=== PATIENT | female | born 1995 | race Two or more races ===

== ENCOUNTER 2020-07-12 04:31 | Emergency (ER) | payer OTHER, SELFPAY ==
[2020-07-12 05:03] LABS: BASO # 0.1 10^3/uL (0.0-0.2); BASO % 0.5 % (0.0-1.0); EOS # 0.2 10^3/uL (0.0-0.5); EOS % 1.4 % (0.0-3.0); HEMATOCRIT 28.6 % (36.0-47.0); HEMOGLOBIN 7.9 g/dl (12.0-15.5); LYMPH # 3.8 10^3/uL (1.5-5.0); LYMPH % 36.3 % (24.0-44.0); MEAN CORPUSCULAR HEMOGLOBIN 19.9 pg (27.0-33.0); MEAN CORPUSCULAR HGB CONC 27.6 g/dl (32.0-36.5); MONO # 0.7 10^3/uL (0.0-0.8); NEUTROPHILS # 5.7 10^3/uL (1.5-8.5); NEUTROPHILS % 54.5 % (36.0-66.0); PLATELET COUNT, AUTOMATED 338 10^3/uL (150-450); RED BLOOD COUNT 3.97 10^6/uL (4.00-5.40); WHITE BLOOD COUNT 10.5 10^3/uL (4.0-10.0)
[2020-07-12 05:21] LABS: AMPHETAMINES LEVEL URINE NEGATIVE (NEGATIVE); BARBITURATES URINE NEGATIVE (NEGATIVE); BENZODIAZEPINES URINE NEGATIVE (NEGATIVE); CANNABINOIDS URINE NEGATIVE (NEGATIVE); COCAINE METABOLITE URINE NEGATIVE (NEGATIVE); METHADONE URINE NEGATIVE (NEGATIVE); OPIATES URINE NEGATIVE (NEGATIVE); PHENCYCLIDINE URINE NEGATIVE (NEGATIVE)
[2020-07-12 05:36] LABS: HCG, SERUM QUALITATIVE NEGATIVE (NEGATIVE)
[2020-07-12 05:38] LABS: ACETAMINOPHEN LEVEL < 2.0 UG/ML (10.0-30.0); ALBUMIN 3.4 GM/DL (3.2-5.2); ALT/SGPT 23 U/L (12-78); BILIRUBIN,DIRECT < 0.1 MG/DL (0.0-0.2); BLOOD UREA NITROGEN 9 MG/DL (7-18); CALCIUM LEVEL 8.4 MG/DL (8.5-10.1); CARBON DIOXIDE LEVEL 23 MEQ/L (21-32); CHLORIDE LEVEL 110 MEQ/L (98-107); CREATININE FOR GFR 0.89 MG/DL (0.55-1.30); GLOMERULAR FILTRATION RATE > 60.0 (>60); GLUCOSE, FASTING 81 MG/DL (70-100); POTASSIUM SERUM 3.6 MEQ/L (3.5-5.1); SALICYLATE LEVEL < 1.7 MG/DL (5.0-30.0); SODIUM LEVEL 142 MEQ/L (136-145); TOTAL PROTEIN 7.2 GM/DL (6.4-8.2); TROPONIN I < 0.02 NG/ML (< 0.10)
[2020-07-12 05:43] LABS: BILIRUBIN,TOTAL < 0.1 MG/DL (0.2-1.0)
--- NOTE | 2020-07-12 06:33 | ECGEPIP ---
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
[2020-07-12 10:13] VITALS: BP 139/75
== END 2020-07-12 11:09 | disposition home or self-care (01) ==
LOC: M ED 04:31
DX: F10.229 Alcohol dependence with intoxication, unspecified (principal); Y90.0 Blood alcohol level of less than 20 mg/100 ml; D64.9 Anemia, unspecified

== ENCOUNTER 2020-12-31 13:25 | Emergency (ER) | payer OTHER ==
[~2020-12-31] VITALS: Ht 165.1 cm; Wt 93.4 kg
[2020-12-31] MEDS ORDERED: LIDOCAINE 2% MDV 20ML VIAL SC ONE (15:40)
[2020-12-31 16:44] VITALS: BP 138/78
== END 2020-12-31 17:05 | disposition home or self-care (01) ==
LOC: M ED 13:25
DX: S61.012A Laceration without foreign body of left thumb without damage to nail, initial encounter (principal); W26.0XXA Contact with knife, initial encounter; Y92.098 Other place in other non-institutional residence as the place of occurrence of the external cause; Y93.89 Activity, other specified; Y99.8 Other external cause status; F17.290 Nicotine dependence, other tobacco product, uncomplicated

== ENCOUNTER 2021-01-04 19:40 | Emergency (ER) | payer OTHER ==
[~2021-01-04] VITALS: Ht 165.1 cm; Wt 93.2 kg
[2021-01-04 19:59] VITALS: BP 138/89
[2021-01-04] MEDS ORDERED: SERT50TA29 (20:03)
[2021-01-04 20:42] LABS: HEMATOCRIT 34.3 % (36.0-47.0); HEMOGLOBIN 10.4 g/dl (12.0-15.5); MEAN CORPUSCULAR HEMOGLOBIN 23.2 pg (27.0-33.0); MEAN CORPUSCULAR HGB CONC 30.3 g/dl (32.0-36.5); MEAN CORPUSCULAR VOLUME 76.6 fl (80.0-96.0); PLATELET COUNT, AUTOMATED 369 10^3/uL (150-450); RED BLOOD COUNT 4.48 10^6/uL (4.00-5.40); WHITE BLOOD COUNT 7.8 10^3/uL (4.0-10.0)
[2021-01-04 21:02] LABS: AMPHETAMINES LEVEL URINE NEGATIVE (NEGATIVE); BARBITURATES URINE NEGATIVE (NEGATIVE); BENZODIAZEPINES URINE NEGATIVE (NEGATIVE); CANNABINOIDS URINE NEGATIVE (NEGATIVE); COCAINE METABOLITE URINE NEGATIVE (NEGATIVE); METHADONE URINE NEGATIVE (NEGATIVE); OPIATES URINE NEGATIVE (NEGATIVE); PHENCYCLIDINE URINE NEGATIVE (NEGATIVE)
[2021-01-04 21:14] LABS: RSV AMPLIFICATION NEGATIVE (NEGATIVE)
[2021-01-04 21:17] LABS: ACETAMINOPHEN LEVEL < 2.0 UG/ML (10.0-30.0); ALBUMIN 3.6 GM/DL (3.2-5.2); ALT/SGPT 25 U/L (12-78); BILIRUBIN,DIRECT < 0.1 MG/DL (0.0-0.2); BILIRUBIN,TOTAL 0.2 MG/DL (0.2-1.0); BLOOD UREA NITROGEN 6 MG/DL (7-18); CALCIUM LEVEL 8.8 MG/DL (8.5-10.1); CARBON DIOXIDE LEVEL 24 MEQ/L (21-32); CHLORIDE LEVEL 109 MEQ/L (98-107); CREATININE FOR GFR 0.79 MG/DL (0.55-1.30); ETHYL ALCOHOL (ETHANOL) < 0.003 % (0.000-0.010); GLOMERULAR FILTRATION RATE > 60.0 (>60); GLUCOSE, FASTING 100 MG/DL (70-100); HCG, SERUM QUALITATIVE NEGATIVE (NEGATIVE); POTASSIUM SERUM 3.8 MEQ/L (3.5-5.1); SALICYLATE LEVEL < 1.7 MG/DL (5.0-30.0); SODIUM LEVEL 140 MEQ/L (136-145); TOTAL PROTEIN 7.1 GM/DL (6.4-8.2)
[2021-06-24] MEDS ORDERED: PREN1CHW PO (14:28)
== END 2021-01-04 22:20 | disposition home or self-care (01) ==
LOC: M ED 19:40
DX: F32.9 Major depressive disorder, single episode, unspecified (principal); Z79.899 Other long term (current) drug therapy

== ENCOUNTER → 2021-02-10 | Outpatient (REF) | payer OTHER ==
[~2021-02-10] MED LIST: SERT50TA29
[2021-02-10 21:38] LABS: GC DNA AMPLIFICATION NEGATIVE (NEGATIVE)
== END ==
LOC: M SFHCWAGY 17:04
PROVIDERS: ATTEND Nurse Practitioner Women's Health
DX: Z11.3 Encounter for screening for infections with a predominantly sexual mode of transmission (principal)
CPT/HCPCS: 87661; G0123; G0463

== ENCOUNTER 2021-02-23 13:48 | Emergency (ER) | payer OTHER ==
[~2021-02-23] VITALS: Ht 165.1 cm; Wt 97.7 kg
[2021-02-23 14:17] VITALS: BP 126/76
== END 2021-02-23 16:17 | disposition left against medical advice (07) ==
LOC: EDBD 13:48 → M ED 13:48
DX: Z53.29 Procedure and treatment not carried out because of patient's decision for other reasons (principal)

== ENCOUNTER → 2021-04-27 | Outpatient (CLI) | payer OTHER ==
--- NOTE | 2021-04-27 08:53 | REP ---
INDICATION: ELEVATED LFT'S EVAL FOR FATTY LIVER COMPARISON: None. TECHNIQUE: Real time chaidez scale ultrasound examination using curved array transducer. FINDINGS: Liver is normal in contour, size, and echogenicity without focal hepatic lesions identified. Pancreas is incompletely evaluated due to interposed bowel gas. The gallbladder includes sludge and small gallstones without wall thickening or pericholecystic fluid. No biliary ductal dilatation is appreciated and the common bile duct measures 3.2 mm diameter. Right kidney is normal in reniform shape without hydronephrosis and measures 10.8 x 4.7 x 4.7 cm. No ascites in the visualized right upper quadrant. IMPRESSION: Cholelithiasis. <Electronically signed by Reese Dyson > 04/27/21 [id number]
== END ==
LOC: M RAD 07:16
PROVIDERS: ATTEND Physician Assistant
DX: R74.01 Elevation of levels of liver transaminase levels (principal)

== ENCOUNTER → 2021-07-01 | Outpatient (CLI) | payer OTHER ==
[~2021-07-01] MED LIST changes: +PREN1CHW PO
== END ==
LOC: M LABSMTC 10:00
PROVIDERS: ATTEND Anesthesiology
DX: Z01.818 Encounter for other preprocedural examination (principal); Z11.52 Encounter for screening for COVID-19

== ENCOUNTER 2021-07-06 07:37 | Day surgery (SDC) | payer OTHER ==
[~2021-07-06] VITALS: Ht 165.1 cm; Wt 95.4 kg
[~2021-07-06 07:37] MED LIST changes: +LR 1,000 ML IV ONE
[2021-07-06] MEDS ORDERED: fentaNYL 250 MCG/5 ML INJECTION (J3010) As Ordered ONE (08:18)
[2021-07-06] MEDS ORDERED: ACETAMINOPHEN 1000MG 100ML IV BTL (OFIRMEV) (J0131 PER 10MG) As Ordered ONE (08:19)
[2021-07-06] MEDS ORDERED: dexameTHASONE 4 MG/ML 1ML VIAL (J1100 PER 1MG) As Ordered ONE (08:19)
[2021-07-06] MEDS ORDERED: ONDANSETRON 4MG/2ML VIAL As Ordered ONE ×2 (08:19→11:20)
[2021-07-06] MEDS ORDERED: KETOROLAC 60MG 2ML VIAL As Ordered ONE (08:19)
[2021-07-06] MEDS ORDERED: ROCURONIUM BROMIDE 50 MG/5 ML VIAL As Ordered ONE (08:19)
[2021-07-06] MEDS ORDERED: propofoL 200 MG/20 ML VIAL As Ordered ONE ×2 (08:19→10:51)
[2021-07-06] MEDS ORDERED: MIDAZOLAM INJ 2MG/2ML VIAL (J2250 PER 1MG) As Ordered ONE (08:19)
[2021-07-06] MEDS ORDERED: LIDOCAINE 2% 100MG/5ML SDV (FOR ANES.) As Ordered ONE (08:19)
[2021-07-06 08:48] LABS: BLOOD UREA NITROGEN 6 MG/DL (7-18); CALCIUM LEVEL 8.9 MG/DL (8.5-10.1); CARBON DIOXIDE LEVEL 25 MEQ/L (21-32); CHLORIDE LEVEL 110 MEQ/L (98-107); CREATININE FOR GFR 0.99 MG/DL (0.55-1.30); GLOMERULAR FILTRATION RATE > 60.0 (>60); GLUCOSE, FASTING 95 MG/DL (70-100); POTASSIUM SERUM 3.9 MEQ/L (3.5-5.1); SODIUM LEVEL 141 MEQ/L (136-145)
[2021-07-06] MEDS ORDERED: BUPIVACAINE HCL 0.25% 30ML VIAL As Ordered ONE (09:27)
[2021-07-06] MEDS ORDERED: SUGAMMADEX SODIUM 500 MG/5 ML VIAL (BRIDION) As Ordered ONE (09:53)
[2021-07-06] MEDS ORDERED: GLYCOPYRROLATE INJ 0.2 MG/ML 2 ML VIAL As Ordered ONE (10:05)
[2021-07-06] MEDS ORDERED: fentaNYL 100 MCG/2 ML INJECTION (J3010) As Ordered ONE (11:30)
[2021-07-06] MEDS: fentaNYL 100 MCG/2 ML INJECTION (J3010) IV PRN ×4 (11:33→11:48)
[2021-07-06] MEDS ORDERED: oxyCODONE 5MG TAB PO PRN (11:35)
[2021-07-06] MEDS ORDERED: ONDANSETRON 4MG/2ML VIAL IV PRN (11:35)
[2021-07-06] MEDS ORDERED: LR 1,000 ML IV SCH (11:35)
[2021-07-06] MEDS ORDERED: ACETAMINOPHEN 500 MG TAB PO PRN (11:55)
[2021-07-06] MEDS ORDERED: NORCO, ANEXSIA 5/325MG TABLET (HYDROcodone/ACETAMINOPHEN) PO PRN (12:00)
[2021-07-06] MEDS ORDERED: IBUPROFEN 600MG TAB PO PRN (12:00)
[2021-07-06 12:54] VITALS: BP 142/80
== END 2021-07-06 12:56 | disposition home or self-care (01) ==
LOC: M SDC 07:37
PROVIDERS: ATTEND Surgery
DX: K80.20 Calculus of gallbladder without cholecystitis without obstruction (principal); K76.89 Other specified diseases of liver; E66.9 Obesity, unspecified
CPT/HCPCS: 36415; 44180; 80048; 88304; J0131; J1100; J1885; J2250; J2405; J3010

== ENCOUNTER → 2021-08-02 | Outpatient (CLI) | payer OTHER ==
[~2021-08-02] MED LIST changes: -LR 1,000 ML IV ONE
[2021-08-02 15:06] LABS: HCG, SERUM QUALITATIVE NEGATIVE (NEGATIVE)
== END ==
LOC: M LAB 14:30
PROVIDERS: ATTEND Nurse Practitioner Adult Health
DX: N91.2 Amenorrhea, unspecified (principal)